=== PATIENT | female | born 1960 | race Caucasian/White ===

== ENCOUNTER 2021-02-07 02:08 | Emergency (ER) | payer MEDICAID ==
[~2021-02-07] VITALS: Ht 154.9 cm; Wt 77.1 kg
[2021-02-07] MEDS ORDERED: ZESTRIL5 MG PO (02:23)
[2021-02-07] MEDS ORDERED: PROAIR HFA8.5 GM INH (04:09)
[2021-02-07] MEDS ORDERED: LISINOPRIL10 MG PO (04:09)
[2021-02-07] MEDS ORDERED: NORCO7.5 PO (04:10)
[2021-02-07 04:18] VITALS: BP 158/97
== END 2021-02-07 04:18 | disposition home or self-care (01) ==
LOC: M.ERS 02:08
DX: S42.251A Displaced fracture of greater tuberosity of right humerus, initial encounter for closed fracture (principal); I10 Essential (primary) hypertension; F17.210 Nicotine dependence, cigarettes, uncomplicated; Z85.43 Personal history of malignant neoplasm of ovary; Z87.01 Personal history of pneumonia (recurrent); W01.0XXA Fall on same level from slipping, tripping and stumbling without subsequent striking against object, initial encounter; Y93.89 Activity, other specified; Y92.090 Kitchen in other non-institutional residence as the place of occurrence of the external cause; Y99.8 Other external cause status